=== PATIENT | female | born 1960 | race Caucasian/White ===

== ENCOUNTER → 2016-12-17 | Outpatient (CLI) | payer BC ==
--- NOTE | 2016-12-17 10:35 | MM ---
Reason for exam: screening (asymptomatic). Last mammogram was performed 2 years and 4 months ago. History: Patient is postmenopausal and had first child at age 36. Physical Findings: A clinical breast exam by your physician is recommended on an annual basis and results should be correlated with mammographic findings. MG 3D Screening Mammo W/Cad Bilateral CC and MLO view(s) were taken. Prior study comparison: August 02, 2014, bilateral MG screening mammo w CAD. February 10, 2012, bilateral digital screening mammo w/CAD. The breast tissue is heterogeneously dense. This may lower the sensitivity of mammography. There is no discrete abnormality. No significant changes when compared with prior studies. ASSESSMENT: Negative, BI-RAD 1 RECOMMENDATION: Routine screening mammogram of both breasts in 1 year.
== END | disposition home or self-care (01) ==
LOC: RADMAMWWP 07:05
PROVIDERS: ATTEND Internal Medicine
DX: Z12.31 Encounter for screening mammogram for malignant neoplasm of breast (principal)
CPT/HCPCS: 77063; G0202

== ENCOUNTER → 2019-01-05 | Outpatient (CLI) | payer BC ==
--- NOTE | 2019-01-05 08:33 | CT ---
EXAMINATION TYPE: CT sinus wo con DATE OF EXAM: 01/05/2019 COMPARISON: NONE HISTORY: Chronic sinusitis per order. Facial pain for one plus months with dizziness and vision saleh es for patient. CT DLP: 567 mGycm. Automated Exposure Control for Dose Reduction was Utilized. TECHNIQUE: CT scan of the sinuses is performed without contrast, axial images are obtained, coronal r eformatted images are also reviewed. FINDINGS: Mild to minimal mucosal thickening involving left maxillary sinus with tiny air-fluid level . Mild mucosal thickening slightly more prominent inferiorly with some lobulation involving the right maxillary sinus with more prominent air fluid level. Patchy opacification posterior right ethmoid si nus laterally on image 27. [id number] mucosal thickening involving anterior ethmoid sinuses silvestre aterally. Bilateral frontal and sphenoid sinuses are clear. The ostiomeatal complex is patent bilater ally on the coronal images. Visualized portion of mastoid air cells show no abnormal opacification. The globes are intact bilate rally. Visualized brain parenchyma shows mild to moderate generalized atrophy more prominent over th e superior bilateral frontal lobes. IMPRESSION: Acute on chronic right greater than the left bilateral maxillary sinusitis. 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
== END | disposition home or self-care (01) ==
LOC: RADCTMAIN 08:04
PROVIDERS: ATTEND Otolaryngology
DX: J32.0 Chronic maxillary sinusitis (principal); J01.20 Acute ethmoidal sinusitis, unspecified
CPT/HCPCS: 70486

== ENCOUNTER → 2021-10-01 | Outpatient (CLI) | payer BC ==
--- NOTE | 2021-10-01 19:13 | BD ---
EXAMINATION TYPE: Axial Bone Density DATE OF EXAM: 10/01/2021 COMPARISON: 02/10/2012 CLINICAL HISTORY: 61 years year old Female. ICD-10 CODE: M89.9 Bone Disorder Height: 67.5 IN Weight: 237 LBS FRAX RISK QUESTIONS: Secondary Osteoporosis: 3. Menopause before 45: AGE 41 RISK FACTORS HISTORY OF: Active: YES Diet low in dairy products/other sources of calcium: YES Postmenopausal woman: AGE 41 Lost more than 2 inches in height since high school: YES 2 04/07" MEDICATIONS: Thyroid Medications: YES Which medication: Levothyroxine How Lon+ YEARS Additional Medications: VIT D, LEVOTHYROXINE, SPIRONO LACTONE, LISINOPRIL, EXAM MEASUREMENTS: Bone mineral densitometry was performed using the [employer] System. Bone mineral density as measured about the Lumbar spine is: ----- L1-L4(G/cm2): 1.295 T Score Values are as follows: ----- L1: 0.7 ----- L2: 0.0 ----- L3: 1.2 ----- L4: 1.4 ----- L1-L4: 1.0 Bone mineral density has: Increased 2.5% since study of: 02/10/2012 Bone mineral density about the R hip (g/cm2): 0.957 Bone mineral density about the L hip (g/cm2): 0.880 T Score values are as follows: -----R Neck: -0.6 -----L Neck: -1.1 -----R Total: -0.5 -----L Total: -0.3 Bone mineral density has: Increased 4.4% since study of: 02/10/2012 FRAX%s: The graph provided illustrates a 7.3 chance for a major osteoporotic fx and a 0.5 chance for the hips probability for fx in 10 years time. IMPRESSION: Osteopenia (T Score between -2.5 and -1). There is slightly increased risk of fracture and the patient may be considered for treatment. Re-Screen 2-5 years. NOTE: T-SCORE=SD OF THE YOUNG ADULT MEAN.
--- NOTE | 2021-10-03 07:34 | MM ---
Reason for Exam: Screening (asymptomatic). Last mammogram was performed 4 year(s) and 9 month(s) ago. Patient History: Menarche at age 10. First Full-Term at age 36. Late child-bearing (after 30). Postmenopausal. Risk Values: Suzi 5 year model risk: 2.2%. NCI Lifetime model risk: 9.1%. Prior Study Comparison: 02/10/2012 Bilateral Screening Mammogram, [facility]. 08/02/2014 Bilateral Screening Mammogram, [facility]. 12/17/2016 Bilateral Screening Mammogram, [facility]. Tissue Density: There are scattered fibroglandular densities. Findings: Analyzed By CAD. No suspicious groups of microcalcifications, spiculated or lobular masses, architectural distortion or other secondary signs of malignancy are mammographically apparent. Overall Assessment: Benign, BI-RAD 2 Management: Screening Mammogram of both breasts in 1 year. A negative mammogram report should not preclude additional follow up of suspicious palpable abnormalities. Patient should continue monthly self breast exam. A clinical breast exam by your physician is recommended on an annual basis and results should be correlated with mammographic findings. Electronically signed and approved by: Jimmy Back D.O. Radiologis
== END | disposition home or self-care (01) ==
LOC: RADMAMWWP 07:31
PROVIDERS: ATTEND Internal Medicine
DX: Z12.31 Encounter for screening mammogram for malignant neoplasm of breast (principal); M85.852 Other specified disorders of bone density and structure, left thigh; Z78.0 Asymptomatic menopausal state
CPT/HCPCS: 77063; 77067; 77080